=== PATIENT | female | born 1970 | race Caucasian/White ===

== ENCOUNTER 2020-06-29 16:22 | Outpatient (REF) | payer MEDICAID, SELFPAY | END 2020-06-29 16:23 | disposition home or self-care (01) | LOC: HO.LAB 16:22 | PROVIDERS: Visit Provider Internal Medicine | DX: Z20.828 Contact with and (suspected) exposure to other viral communicable diseases (principal) | CPT/HCPCS: 87635 ==

== ENCOUNTER 2020-07-23 15:47 | Outpatient (REF) | payer MEDICAID, SELFPAY | END 2020-07-23 15:48 | disposition home or self-care (01) | LOC: HO.LAB 15:47 | PROVIDERS: Visit Provider Internal Medicine | DX: Z20.828 Contact with and (suspected) exposure to other viral communicable diseases (principal) | CPT/HCPCS: U0003 ==

== ENCOUNTER 2020-07-30 09:22 | Emergency (ER) | payer MEDICAID, SELFPAY ==
[2020-07-30 09:39] VITALS: BP 130/90; PULSE 60; RESP 17; TEMP 36.6; O2SAT 99; BMI 38.9
[2020-07-30] MEDS: Ketorolac Tromethamine 15 MG/ML VIAL IM (10:29)
[2020-07-30] MEDS: diazePAM 5 MG TABLET PO (10:29)
--- NOTE | 2020-07-30 10:39 | ED.NECK ---
HPI - Neck Pain/Injury General Chief Complaint: Neck Pain/Injury Stated Complaint: neck pain Time Seen by Provider: 07/30/20 10:23 Source: patient and EMS Mode of arrival: EMS History of Present Illness HPI Narrative: 50-year-old female with no significant past medical history presented to ED complaining of right-sided neck pain s/p waking up this morning. Reports pain worse with head/arm movement. Denies direct trauma/falls, or known injury. Denies numbness, tingling, weakness, headache, vision changes. Took Tylenol without relief at home complaint: neck pain Related Data Previous Rx's Medication Instructions Recorded acetaminophen [Tylenol Extra 500 mg PO Q6H PRN #20 tab 07/30/20 Strength] cyclobenzaprine 5 mg PO Q8H PRN 5 Days #14 tab 07/30/20 lidocaine [Lidoderm] 1 patch TOPICAL DAILY PRN #30 ea 07/30/20 MDD remove after 12 hours naproxen 500 mg PO BID PRN 10 Days #20 tab 07/30/20 Allergies Allergy/AdvReac Type Severity Reaction Status Date / Time No Known Allergies Allergy Verified 07/30/20 09:41 Review of Systems Review of Systems: Constitutional: No Fever, No Chills ENT/Mouth: No Ear Pain, No sore throat, No headache, no visual changes Gastrointestinal: No Nausea, No Vomiting Musculoskeletal: + joint pain, No Myalgias, No Joint Swelling Skin: No Skin Lesions, No rash Neuro: No Weakness, No Numbness, No Paresthesias Yes all other systems are reviewed and are negative Neurologic: Denies Sensory deficit (Neuro) [facility] Past Medical History Attestation statement: The following information was validated with the patient. Social History Social History Advance Directives: No Advance Directives Information Provided: No Physical Exam Vital Signs: Vital Signs: Last Vital Signs Temp 97.9 F 07/30/20 09:39 Pulse 60 07/30/20 09:39 Resp 17 07/30/20 09:39 BP 130/90 H 07/30/20 09:39 Pulse Ox 99 07/30/20 09:39 Body Mass Index 38.9 Const: General: cooperative and healthy appearing Orientation/consciousness: patient oriented x3 Limitations: no limitations HENMT: Head: Yes normal to inspection Ears: hearing grossly normal bilaterally General nose exam: Normal external nose present Face and sinus: Yes normal facial exam Eyes: General: appearance normal, both eyes and all related structures EOM: EOMs intact bilaterally Neck: Other: No midline cervical spinous tenderness or step-offs. + right-sided MSK neck tenderness elicited on exam extending to trapezius muscle. Neck ROM decreased secondary to pain. NV intact Neck: Yes normal visual inspection Resp: Effort & Inspection: normal respiratory effort Cardio: Peripheral pulses: radial pulses present Back/Spine/Pelvis: Other: No midline spinous tenderness throughout Skin: Rashes: no rashes Wounds: no wounds Neuro: General: patient oriented x3 Gait exam (Neuro): Normal gait present Sensory Exam: No Sensory deficit (Neuro) Extrem: General: Yes normal to inspection Course Course Course Narrative: -[id number]--patient reports symptomatic improvement after Toradol and Valium in the ED. Plan to DC home with PCP follow-up. Worrisome signs and symptoms and strict return precautions discussed MDM - Neck Pain/Injury MDM Narrative Medical decision making narrative: On exam VSS, NAD/well-appearing, no midline spinous tenderness throughout. MSK tenderness elicited on exam and with ROM of neck. Likely MSK pain/muscle spasm. Low concern for cervical dissection/fracture Plan: Symptomatic therapy/reassess Discharge Plan Discharge Clinical Impression: Strain of neck muscle Qualifiers: Encounter type: initial encounter Qualified Code(s): S16.1XXA - Strain of muscle, fascia and tendon at neck level, initial encounter Patient Disposition: Home, Self-Care Instructions: Acute Neck Pain (ED) Additional Instructions: Your pain is likely musculoskeletal Flexeril is a muscle relaxer, take at night as it makes you drowsy, do not drive, drink alcohol, or operate machinery while taking it Naproxen as an anti-inflammatory / pain medication, take with food Lidoderm patches are numbing patches, apply to painful area In addition take Tylenol at home If symptoms persist or worsen, pain becomes unbearable, you developed urinary retention or incontinence, or weakness, vision changes/headache return to the ED Prescriptions: New acetaminophen [Tylenol Extra Strength] 500 mg tablet 500 mg PO Q6H PRN (Reason: pain or fever) Qty: 20 RF: 0 lidocaine [Lidoderm] 5 % adhesive patch,medicated 1 patch topical DAILY MDD remove after 12 hours PRN (Reason: pain) Qty: 30 RF: 0 naproxen 500 mg tablet 500 mg PO BID PRN (Reason: pain) 10 Days Qty: 20 RF: 0 cyclobenzaprine 5 mg tablet 5 mg PO Q8H PRN (Reason: pain (scale score 7-10)) 5 Days Qty: 14 RF: 0 Referrals: Physician,None [Primary Care Provider] - 2 days (Your PCP)
== END 2020-07-30 11:14 | disposition home or self-care (01) ==
PROVIDERS: Emergency Provider Emergency Medicine
DX: S16.1XXA Strain of muscle, fascia and tendon at neck level, initial encounter (principal); M54.2 Cervicalgia; X58.XXXA Exposure to other specified factors, initial encounter; Y93.9 Activity, unspecified; Y92.9 Unspecified place or not applicable; Y99.9 Unspecified external cause status; Z79.899 Other long term (current) drug therapy
CPT/HCPCS: 96372; 99282; 99284; J1885